=== PATIENT | female | born 1945 | race Caucasian/White ===

== ENCOUNTER 2018-02-10 06:55 | Day surgery (SDC) | payer MEDICARE ==
[2018-02-10 09:05] VITALS: TEMP 97.8
--- NOTE | 2018-02-10 09:46 | CT ---
CT ABDOMEN AND PELVIS WITH CONTRAST: Date: 02/10/18 HISTORY: Abdominal pain. FINDINGS: There is a large sliding hiatal hernia. There is approximately 50% of the stomach volume in the thora cic cavity. No dilated large or small bowel. Mild diverticular disease of sigmoid colon without active current in flammation. The aortoiliac contour is nonaneurysmal. No retroperitoneal adenopathy. Hypodensity hepatic segment 2, appears to measure fluid attenuation domingo ggesting a cyst. No abnormal enhancing hepatic mass. No hydronephrosis. Subtle hypodensity hepatic segment 8, too small to fully characterize, although st atistically most likely a cyst given its coronal appearance. SMA and celiac trunk are both patent. Adrenal glands are unremarkable. Posterior spinal fusion hardware L4-S1 with the right pedicular screw tip exiting the superior end pl ate of L4. IMPRESSION: Large sliding hiatal hernia with approximately 50% of stomach volume within the thoracic cavity. Othe rwise, no acute intra-abdominal abnormality. POS: [facility]
--- NOTE | 2018-02-10 10:35 | RAD ---
LUMBAR SPINE MYELOGRAM INDICATION: Low back/lumbar pain. Spondylolisthesis. PROCEDURE: After informed consent had been obtained, the patient was escorted to the interventional suite and pl aced on the procedural table. [employer] imaging was performed. The patient was placed into a prone posi tion. Skin on the low back was then prepped and draped in the standard sterile fashion and topical a nd regional soft tissue anesthesia was achieved with 1% lidocaine and sodium bicarbonate. L4 prison guard ior, right interlaminar approach was selected, and a 22 gauge needle was uneventfully advanced into t he thecal sac with clear color CSF. Subsequently, 9 cc Isovue-M 200 was instilled into the thecal sa c under real time fluoroscopy. Appropriate opacification of thecal sac demonstrated with imaging sto red for confirmation. The needle was then removed from the patient. The patient tolerated the proce dure well and was then transferred to CT to undergo subsequent myelogram. Reference separate report for full details. FLUOROSCOPY DATA: 0.2 minutes intermittent fluoroscopy, 23 mGy*^m2. IMPRESSION: Technically successful lumbar myelogram as detailed above. POS: [facility]
--- NOTE | 2018-02-10 11:43 | CT ---
CT LUMBAR SPINE WITH CONTRAST CT LUMBAR MYELOGRAM: CLINICAL HISTORY: Lumbar spondylolisthesis, lumbar pain. FINDINGS: Redemonstration of posterior metallic fusion spanning the lumbosacral region, L4 through S1 segments. There is sacralization of the L5 segment. There is mild lucency about the bilateral L4 pedicle scr ews which may relate to a component of loosening. Hardware demonstrates a similar configuration to c omparison CT 11/26/16, with redemonstration of extension of right L4 pedicle screw beyond the anterior confines of the right pedicle. There is redemonstration of grade II spondylolisthesis at L4-5. L5-S1: There is a broad-based osteophyte ridge , grossly stable. There is mild to moderate right an d moderate left neural foraminal compromise at the L5-S1 level, similar appearing. L4-5: Evidence of posterior decompression. Spondylolisthesis as discussed above. There is moderate right and mild left neural foraminal narrowing. Postoperative thecal sac is patent. L3-4: Broad-based disk-osteophyte is present with mild to moderate central canal stenosis and mild b ilateral neural foraminal stenosis. L2-3: There is mild narrowing of the central canal on the basis of broad-based disk-osteophyte. The re is no high-grade foraminal stenosis. L1-2: Mild effacement of the ventral thecal sac on the basis of broad-based disk-osteophyte. There is no high-grade foraminal compromise. IMPRESSION: Postoperative lumbar spine with multilevel degenerative change. Grade II spondylolisthesis of L4-5 i s redemonstrated. There is perihardware lucency of the bilateral L4 pedicle screws to indicate a com ponent of loosening with redemonstration of the right pedicle screw extending anterior to the confine s of the right pedicle. POS: [facility]
[2018-02-10] MEDS ORDERED: Iopamidol 370 76% 100 ML VIAL ONE (14:59)
[2018-02-10] MEDS ORDERED: Iopamidol-M 200 41% 20 ML VIAL ONE (15:08)
== END 2018-02-10 11:35 | disposition home or self-care (01) ==
LOC: RAD 06:55
PROVIDERS: ATTEND Specialist
PROC: B02BY0Z Computerized Tomography (CT Scan) of Spinal Cord using Other Contrast, Unenhanced and Enhanced (ICD-10-PCS; principal; 2018-02-10)
DX: M43.16 Spondylolisthesis, lumbar region (principal); M47.26 Other spondylosis with radiculopathy, lumbar region; I10 Essential (primary) hypertension; D64.9 Anemia, unspecified; Z79.899 Other long term (current) drug therapy; Z88.8 Allergy status to other drugs, medicaments and biological substances
CPT/HCPCS: 62304; 72132; 74177; 82565

== ENCOUNTER 2018-04-19 14:23 | Outpatient (CLI) | payer MEDICARE ==
[~2018-04-19 14:23] MED LIST: Gadobenate Dimeglumine 529 MG/1 ML (20ML VIAL) ONE
--- NOTE | 2018-04-19 17:10 | MRI ---
MRI OF THE CERVICAL SPINE WITHOUT CONTRAST: INDICATION: Neck pain and shoulder blade pain. COMPARISON: None. FINDINGS: There is prominent susceptibility artifact involving the upper cervical spine and craniocervical junc tion likely related to metal artifact from the patient's dental work. C2-C3 is not well seen. At C3-C4, the neural foramina is not well seen. There is no appreciable central canal narrowing. Th ere is moderate facet joint degenerative change. At C4-5, there is uncovertebral hypertrophy and facet joint degenerative change. Mild neural foramin al narrowing. At C5-6, there is uncovertebral hypertrophy and facet joint degenerative change inducing severe left and moderate right neural foraminal narrowing. At C6-7, there is uncovertebral hypertrophy and facet joint degenerative change inducing moderate joseph ateral neural foraminal narrowing. At C7-T1, there is no appreciable central canal or neural foraminal narrowing. IMPRESSION: 1. Limitations of the exam as above. 2. Multilevel neural foraminal narrowing as detailed above. POS: [facility]
--- NOTE | 2018-04-19 17:37 | MRI ---
MRI LUMBAR SPINE WITH AND WITHOUT CONTRAST: Date: 04/19/18 COMPARISON: [facility] MRI performed in 2014. TECHNIQUE: Lumbar spine MRI is performed with and without intravenous Gadolinium administration. Multisequential , multiplanar imaging is performed. FINDINGS: There are bilateral transpedicular screws at L4, L5, and S1. There is associated metallic susceptibil ity artifact. Overall, there is appropriate T1 marrow signal intensity in the lumbar vertebra. Verteb ral body height is maintained. No fracture. No abnormal enhancement of the vertebral bodies. No signi ficant STIR hyperintensity. No abnormal enhancement in the central spinal canal, including the cauda equina and conus medullaris. Laminectomy defect at L5-S1. 1.1 cm of anterolisthesis of L4 upon L5. Conus medullaris terminates at the inferior aspect of T12. T2 hyperintensity in the left renal cortex is too small to characterize. Symmetric signal intensity o f the psoas muscles. T12-L1: Adequate disc hydration. No significant central canal stenosis. Neural foramina are patent. L1-L2: Adequate disc hydration. No significant central canal stenosis. Neural foramina are patent. L2-L3: Desiccation with mild loss of disc space height. Generalized disc bulge, ligamentum flavum thickening , and facet hypertrophy result in mild central canal stenosis. Neural foramina are patent. L3-L4: Adequate disc hydration. Generalized disc bulge, ligamentum flavum thickening, and facet hypertrophy result in mild central canal stenosis. There is a small amount of fluid in the right facet joint. The re is mild narrowing of the right subarticular zone without obscuration of the traversing right L4 ne rve root. Left subarticular zone is unremarkable. Mild bilateral neural foraminal narrowing. L4-L5: Desiccation without significant loss of disc space height. Generalized disc bulge indents the ventral thecal sac. Mild central canal stenosis. Moderate right and mild left neural foraminal narrowing. L5-S1: Fusion of the disc space. No high grade central canal stenosis. Bilateral metallic susceptibility art ifact results in limited evaluation of the neural foramina. There appears to be at least moderate joseph ateral neural foraminal narrowing. IMPRESSION: 1. Lumbar spine fusion from L4 through S1. There is associated metallic susceptibility artifact. The re is Grade I-II anterolisthesis of L4 upon L5. 2. No evidence of high grade central canal stenosis. However, there does appear to be moderate bilat eral foraminal narrowing at L5-S1. Evaluation is limited by metallic susceptibility artifact. 3. No abnormal enhancement with regards to the contents of the central spinal canal and neural romero veena. POS: [facility]
--- NOTE | 2018-04-19 17:44 | RAD ---
4 VIEWS CERVICAL SPINE: Date: 04/19/18 HISTORY: Pain. Arthritis. COMPARISON: None. FINDINGS: There is no prevertebral soft tissue swelling. In the AP projection, there is evidence of facet hypertrophy. In the neutral position, there is 2.2 mm of anterolisthesis of C4 upon C5 and 2.7 mm of anterolisthes is of C7 upon T1. Moderate loss of disc space height and osteophyte formation at C6-C7. Mild degenera tive disease at C7-T1. Upon flexion, there is 3.0 mm of anterolisthesis of C4 upon C5 and 2.0 mm of anterolisthesis of C7 up on T1. Upon extension, there is 2.0 mm of anterolisthesis of C4 upon C5 and 2.7 mm of anterolisthesis of C7 upon T1. IMPRESSION: Degenerative changes of cervical spine as above. No significant change in terms of the degree of spon dylolisthesis upon flexion or extension. POS: [facility]
== END 2018-04-19 14:24 | disposition home or self-care (01) ==
LOC: BICMRI 14:23
PROVIDERS: ATTEND Physician Assistant Surgical
DX: M54.2 Cervicalgia (principal); M51.16 Intervertebral disc disorders with radiculopathy, lumbar region; M89.8X1 Other specified disorders of bone, shoulder; M48.062 Spinal stenosis, lumbar region with neurogenic claudication; M43.16 Spondylolisthesis, lumbar region; M47.892 Other spondylosis, cervical region; M99.83 Other biomechanical lesions of lumbar region; M99.81 Other biomechanical lesions of cervical region; Z98.1 Arthrodesis status
CPT/HCPCS: 72050; 72141; 72158; 82565; A9579

== ENCOUNTER 2018-10-14 10:05 | Outpatient (CLI) | payer MEDICARE ==
--- NOTE | 2018-10-14 13:28 | MRI ---
EXAM: THORACIC SPINE MRI WITHOUT IV CONTRAST: History: Thoracic radiculitis with upper back pain, burning between the shoulders. FINDINGS: Multiplanar, multisequence MRI examination of the thoracic spine is performed. There are some general ized disc desiccation changes and very mild disc osteophytosis. No evidence for significant canal jim nosis. No spinal cord mass or spinal cord compression. There is atherosclerotic ectatic changes of th e aorta and a large hiatal hernia noted. IMPRESSION: Some mild thoracic spine spondylosis with disc desiccation changes but no evidence for canal stenosis or spinal cord mass or compression. Atherosclerotic changes of the aorta with some ectasia. Moderate to large size hiatal hernia. POS: [facility]
== END 2018-10-14 10:06 | disposition home or self-care (01) ==
LOC: SCSMRI 10:05
PROVIDERS: ATTEND Nurse Practitioner Family
DX: M47.24 Other spondylosis with radiculopathy, thoracic region (principal); I70.0 Atherosclerosis of aorta; I77.819 Aortic ectasia, unspecified site; K44.9 Diaphragmatic hernia without obstruction or gangrene
CPT/HCPCS: 72146